=== PATIENT | female | born 1965 | race Caucasian/White ===

== ENCOUNTER → 2023-06-18 09:31 | Outpatient (REF) | payer OTHER, SELFPAY | LOC: WDC 09:31 | PROVIDERS: ATTENDING PHYSICIAN Nurse Practitioner Family | DX: N63.13 Unspecified lump in the right breast, lower outer quadrant (principal) | CPT/HCPCS: 76642; 77062; 77066 ==

== ENCOUNTER → 2024-01-07 14:41 | Outpatient (REF) | payer OTHER, SELFPAY | LOC: WDC 14:41 | PROVIDERS: ATTENDING PHYSICIAN Family Medicine | DX: R92.8 Other abnormal and inconclusive findings on diagnostic imaging of breast (principal); N63.0 Unspecified lump in unspecified breast | CPT/HCPCS: 76642 ==